=== PATIENT | female | born 1955 | race Asian ===

== ENCOUNTER 2024-08-16 00:07 | Inpatient (IN) | payer MEDICAID, OTHER ==
[~2024-08-16] VITALS: Ht 160 cm; Wt 52.3 kg
--- NOTE | 2024-08-16 00:39 | ED.PDOC ---
History of Present Illness HPI Comments 68-year-old female, history of hypertension, is brought in by ambulance for complaint of dizziness, with associated nausea, vomiting, and photosensitivity, today. Per EMS report, patient is Mandarin speaker and endorses on sudden onset of symptoms 45x minutes prior to ED arrival. She was noted to have been found in her home hunched over toilet, actively, vomiting. Vomitus was reported to have been dark brown in appearance. Initial blood glucose of 137. All remaining vitals were stable and within normal limits. She was compliant with her medications. She has no further associated reported symptoms. At this time of initial assessment, patient is moaning and not answering questions. Family/caretakers not present. Per patient's daughter at bedside patient had a sudden onset of nausea, vomiting, diarrhea and severe headache just prior to calling EMS. Patient had been well throughout the day. No recent illness. No recent travel. Patient had only reported headache earlier in the day. No sick contacts at home. Patient has a history of hypertension. Had negative carotid ultrasound last year. Chief Complaint: Dizziness Time Seen by MD: 00:20 Reviewed Notes: Nurses Notes, Medications, Allergies Allergies: Coded Allergies: No Known Drug Allergy (Verified Allergy, Unknown, 08/16/24) NKDA Home Meds Reported Medications Pravastatin Sodium (PRAVACHOL TABLET) 20 Mg Tb, 1 TAB PO DAILY 08/16/24 Isosorbide Mononitrate (Isosorbide Mononitrate Er) 30 Mg Tab, 1 TAB PO DAILY 08/16/24 Metoprolol Succinate (Metoprolol Succinate Er) 25 Mg Tab, 1 TAB PO DAILY 08/16/24 Information Source: Emergency Med Personnel Mode of Arrival: EMS Severity: Moderate Timing: Minutes Duration: Since onset Prehospital treatment: 12 Lead EKG, Accucheck (137), Ship'S Master, Other (18 gauge left AC) Review of Systems: Unable to obtain full ROS HEENT: Photosensitivity. Lungs: No shortness of breath, no cough. GI: Nausea and vomiting. Positive diarrhea Neuro: Positive headache, positive dizziness Vital Signs Vital Signs Date Time Temp Pulse Resp B/P (MAP) Pulse Ox O2 Delivery O2 Flow Rate FiO2 08/16/24 09:00 Room Air* 0 21 08/16/24 08:16 98.3 73 18 138/74 (95) 94 98.3 Physical Exam General: Patient is lethargic, arouses to verbal stimulus Skin: Skin in warm, dry and intact. Appropriate color for ethnicity. HEENT: The head is normocephalic and atraumatic. Conjunctivae are clear without exudates or hemorrhage. Sclera is non-icteric. EOM are intact. PERRLA No signs of nystagmus. Eyelids are normal in appearance without swelling or lesions. Oral mucosa is pink and moist Neck: The neck is supple with normal range of motion. No JVD. Cardiac: Heart rate and rhythm are normal. No murmurs, gallops, or rubs are auscultated. Respiratory: No signs of respiratory distress. Lung sounds are clear in all lobes bilaterally without rales, rhonchi, or wheezes. Abdominal: Abdomen is soft, non-tender without distention. Bowel sounds are present and normoactive in all four quadrants. Extremities: Upper and lower extremities are atraumatic in appearance without deformity or edema. Neurological: Patient is lethargic, arouses to verbal stimulus. No upper or lower extremity drift. Patient is following commands. No facial asymmetry. Past Medical History PAST MEDICAL HISTORY: HTN Surgical History: Denies all surgeries AWAKE OVERNIGHT MONITOR History: Denies all AWAKE OVERNIGHT MONITOR Hx Family History Family History: Unknown Social History Smoker: Non-Smoker Alcohol: Denies ETOH Use Drugs: Denies Drug Use Lives In: Home Was a procedure done? Was a procedure done?: No EKG EKG : Pulse Rate (adult): 72 [place]: Normal Cardiac Rhythm: NSR Block: None Hypertrophy: None ST: Normal Comments No STEMI Differential Dx Considerations may include: Differential diagnoses considered include but are not limited to cardiac structural disease, arrhythmia, acute coronary syndrome, orthostasis, pulmonary embolism, dissection, seizure, basilar stroke, other. X-Ray, Labs, Meds, VS Vital Signs Date Time Temp Pulse Resp B/P (MAP) Pulse Ox O2 Delivery O2 Flow Rate FiO2 08/16/24 09:00 Room Air* 0 21 08/16/24 08:16 98.3 73 18 138/74 (95) 94 98.3 08/16/24 06:00 80 14 125/72 (89) 96 08/16/24 05:00 74 16 137/75 (95) 94 08/16/24 04:00 73 16 138/75 (96) 93 08/16/24 04:00 75 08/16/24 03:03 74 15 148/74 (98) 96 08/16/24 02:00 70 14 156/69 (98) 96 08/16/24 00:55 64 18 100 Room Air* 0 21 08/16/24 00:55 97.9 64 18 155/69 (97) 100 97.9 08/16/24 00:39 72 08/16/24 00:17 97.6 84 20 136/74 (94) 97 97.6 08/16/24 00:13 72 Lab Test 08/16/24 03:35 08/16/24 02:10 08/16/24 01:36 08/16/24 00:36 Range/Units Urine Color Colorless Yellow Urine Clarity Turbid H Clear Urine pH 8.5 5.0-9.0 Urine Specific [place] 1.015 1.001-1.035 Urine Protein Negative Negative Urine Ketones Trace Negative Urine Blood Negative Negative /uL Urine Nitrite Negative Negative Urine Bilirubin Negative Negative Urine Urobilinogen Normal Negative mg/dL Urine Leukocyte Esterase Negative Negative /uL Urine RBC None seen 0 - 4 /hpf Urine Microscopic WBC < 1 0-5 /HPF Urine Squamous Epithelial Cells None seen <5 /hpf Urine Amorphous Crystals Many None Seen /hpf Urine Bacteria None seen None Seen /hpf Urine Glucose Normal Normal mg/dL Influenza Type A Antigen Negative Negative Influenza Type B Antigen Negative Negative SARS-CoV-2 Antigen (Rapid) Negative NEGATIVE Troponin I High Sensitivity < 3 L < 3 L </=34 ng/L White Blood Count 6.6 4.4-10.8 10^3/uL Red Blood Count 4.70 4.0-5.20 10^6/uL Hemoglobin 13.6 12.2-16.2 g/dL Hematocrit 40.6 36.0-46.0 % Mean Corpuscular Volume 86.3 80.0-100.0 fL Mean Corpuscular Hemoglobin 29.0 28.0-32.0 pg Mean Corpuscular Hemoglobin Concent 33.6 32.0-36.0 g/dL Red Cell Distribution Width 12.6 11.8-14.3 % Platelet Count 131 L 140-450 10^3/uL Mean Platelet Volume 8.3 6.9-10.8 fL Neutrophils (%) (Auto) 80.0 37.0-80.0 % Lymphocytes (%) (Auto) 14.7 10.0-50.0 % Monocytes (%) (Auto) 3.9 0.0-12.0 % Eosinophils (%) (Auto) 1.1 0.0-7.0 % Basophils (%) (Auto) 0.3 0.0-2.0 % Neutrophils # (Auto) 5.3 1.6-8.6 10 ^3/uL Lymphocytes # (Auto) 1.0 0.4-5.4 10 ^3/uL Monocytes # (Auto) 0.3 0-1.3 10 ^3/uL Eosinophils # (Auto) 0.1 0-0.8 10 ^3/uL Basophils # (Auto) 0 0-0.2 10 ^3/uL Nucleated Red Blood Cells 0.0 % Prothrombin Time 10.4 9.3-11.8 sec Prothrombin Time INR 0.98 0.9-1.15 Sodium Level 141 136-145 mmol/L Potassium Level 3.2 L 3.5-5.1 mmol/L Chloride Level 106 98-107 mmol/L Carbon Dioxide Level 25 20-31 mmol/L Anion Gap 10 5-15 Blood Urea Nitrogen 21 9-23 mg/dL Creatinine 0.86 0.550-1.02 mg/dL Glomerular Filtration Rate Calc 74 >90 mL/min BUN/Creatinine Ratio 24.4 H 10.0-20.0 Serum Glucose 135 H 74-106 mg/dL Lactic Acid Level 1.9 0.4-2.0 mmol/L Calcium Level 10.0 8.7-10.4 mg/dL Magnesium Level 2.2 1.6-2.6 mg/dL Total Bilirubin 0.5 0.2-1.0 mg/dL Aspartate Amino Transferase (AST) 25 13-40 U/L Alanine Aminotransferase (ALT) 21 7-40 U/L Alkaline Phosphatase 61 46-116 U/L Total Protein 7.6 5.7-8.2 g/dL Albumin 4.7 3.2-4.8 g/dL Plasma/Serum Blood Alcohol < 3.0 <10 mg/dL Time of 1ST Reevaluation: 00:50 Reevaluation 1ST: Unchanged Patient Education/Counseling: Need For Follow Up Family Education/Counseling: No Family Present Departure 1 Departure Time of Disposition: 05:53 Impression: Primary Impression: Headache Additional Impression: Nausea & vomiting Disposition: 09 ADMITTED INPATIENT Condition: Stable Comments 68-year-old female who presented to the emergency department with sudden onset of severe dizziness, headache, nausea, vomiting and diarrhea. No focal neuro deficit on exam. Patient continues to be generally lethargic however nausea and headache have improved. CT head negative for acute stroke or intracranial hemorrhage. CT angiogram head and neck pending. Patient admitted to hospitalist service for further treatment, evaluation and monitoring. Extensive evaluation was performed in attempt to identify or rule out: (See differential diagnosis section) The following tests were ordered, and results were reviewed by me and discussed with patient: (See diagnostic results section) The following test were independently interpreted by me: EKG I reviewed and agreed with the following test results read by other providers: CT head without contrast I reviewed the following notes from the pt's past medical encounters: N/A Additional information was gathered from interviewing the following independent historians: EMS, patient's daughter at bedside Decision regarding hospitalization or escalation of hospital level of care: Risk and benefits of admission for further treatment of patient's condition was considered. Due to patient's current clinical condition, high risk of decline and poor outcome if discharged and need for further inpatient management and monitoring, patient will be admitted to the hospital. Decision regarding hospitalization or escalation of hospital level of care: Risks and benefits of admission for further treatment of patient's condition was considered however due to patient's stable condition patient will be discharged to follow up closely or return to care for worsening of condition or inability to follow up. Critical Care Note Critical Care Time?: No Stability Stability form required: No Heart Score Heart Score: Heart Score Response (Comments) Value History N/A 0 EKG N/A 0 Age N/A 0 Risk Factors N/A 0 Troponin N/A 0 Total 0 I personally scribed for MIGUEL THURSTON MD ([email or web address]) on 08/16/24 at 00:39. Electronically submitted by Edwin Mora ([email or web address]). MIGUEL THURSTON MD August 16, 2024 00:39
[2024-08-16 00:54] LABS: Basophils # (auto) 0 10 ^3/uL (0-0.2); Basophils % (auto) 0.3 % (0.0-2.0); Eosinophils # (auto) 0.1 10 ^3/uL (0-0.8); Eosinophils % (auto) 1.1 % (0.0-7.0); Hematocrit 40.6 % (36.0-46.0); Hemoglobin 13.6 g/dL (12.2-16.2); Lymphocytes % (auto) 14.7 % (10.0-50.0); Mean Corpuscular Hgb Conc. 33.6 g/dL (32.0-36.0); Mean Corpuscular Volume 86.3 fL (80.0-100.0); Monocytes # (auto) 0.3 10 ^3/uL (0-1.3); Monocytes % (auto) 3.9 % (0.0-12.0); Neutrophils # (auto) 5.3 10 ^3/uL (1.6-8.6); Platelet Count (auto) 131 10^3/uL (140-450); Red Cell Distribution Width 12.6 % (11.8-14.3); White Blood Cell 6.6 10^3/uL (4.4-10.8)
[2024-08-16 00:55] VITALS: PULSE 64; RESP 18; O2SAT 100
[2024-08-16] MEDS: SODIUM CHLORIDE 0.9% 1,000 ML IV ONE (01:05)
[2024-08-16] MEDS: PROCHLORPERAZINE EDISYLATE 5 MG/ML 2ML VIAL IV ONE (01:06)
[2024-08-16 01:09] LABS: INR 0.98 (0.9-1.15); Prothrombin Time 10.4 sec (9.3-11.8)
[2024-08-16 01:19] LABS: Alanine Aminotransferase 21 U/L (7-40); Albumin 4.7 g/dL (3.2-4.8); Alkaline Phosphatase 61 U/L (46-116); Anion Gap 10 (5-15); Aspartate Aminotransferase 25 U/L (13-40); BUN/Creatinine Ratio 24.4 (10.0-20.0); Blood Urea Nitrogen 21 mg/dL (9-23); Carbon Dioxide 25 mmol/L (20-31); Chloride 106 mmol/L (98-107); Magnesium 2.2 mg/dL (1.6-2.6); Sodium 141 mmol/L (136-145); Total Protein 7.6 g/dL (5.7-8.2)
[2024-08-16 01:20] LABS: Bilirubin, Total 0.5 mg/dL (0.2-1.0)
--- NOTE | 2024-08-16 01:23 | DVH ---
CT HEAD WITHOUT CONTRAST INDICATION: Acute HARRIS, N/V, dizziness COMPARISON: None TECHNIQUE: CT of the head without intravenous contrast. RADIATION DOSE: CTDIvol: 58.35 mGy, DLP: 1033.08 mGy*cm FINDINGS: There is no evidence of intracranial hemorrhage, infarct, extra-axial collection, mass effect, midli ne shift, herniation or hydrocephalus. The ventricles, sulci and cisterns are normal. The burris-white differentiation is normal. Visualized paranasal sinuses and mastoid air cells are clear. Soft tissues and osseous structures are unremarkable. IMPRESSION: No intracranial abnormality identified.
[2024-08-16 01:24] LABS: Glucose 135 mg/dL (74-106); Potassium 3.2 mmol/L (3.5-5.1)
[2024-08-16] MEDS: IOHEXOL 350 MG/ML 100ML IJ ONE ×2 (01:25→02:06)
[2024-08-16 01:46] LABS: Blood Alcohol < 3.0 mg/dL (<10)
[2024-08-16] MEDS: KETOROLAC TROMETH 30 MG/ML 1ML VIAL IV ONE (02:00)
[2024-08-16 03:34] LABS: Rapid Influenza A Negative (Negative); Rapid Influenza B Negative (Negative)
[2024-08-16 03:35] LABS: COVID19 ANTIGEN SOFIA FIA NEGATIVE (NEGATIVE)
[2024-08-16 03:55] LABS: Urine Bacteria None Seen /hpf (None Seen)
[2024-08-16 04:05] LABS: Urine Amorphous Crystal MANY /hpf (None Seen); Urine Blood Negative /uL (Negative); Urine Clarity Turbid (Clear); Urine Color Colorless (Yellow); Urine Protein, UAD Negative (Negative); Urine Specific Gravity 1.015 (1.001-1.035); Urine Squamous Epithelial Cell None Seen /hpf (<5); Urine Urobilinogen Normal (Negative); Urine pH 8.5 (5.0-9.0)
[2024-08-16 04:06] LABS: Urine WBC < 1 /HPF (0-5)
--- NOTE | 2024-08-16 06:16 | ECG ---
[facility] Test Date: 2024-08-16 Test Time: 00:13:07 Pat Name: CONNER AGUILAR Department: ED Room: 0223T Gender: F Manager Statistical Programming: [place] : 1955 Requested By: MIGUEL THURSTON Order Number: [id number] Reading MD: Jose Wilde Measurements Intervals [place] Rate: 72 P: 22 FL: 176 QRS: 52 QRSD: 105 T: 39 QT: 438 QTc: 480 Interpretive Statements Sinus rhythm Electronically Signed On 08-19-2024 20:40:16 PDT by Jose Wilde Please click the below link to view image of tracing.
[2024-08-16] MEDS: IOHEXOL 300 MG/ML 100ML BOTTLE IJ ONE (08:20)
[2024-08-16] MEDS ORDERED: METO25TA93 PO (09:06)
[2024-08-16] MEDS ORDERED: ISOS1TAB28 PO (09:06)
[2024-08-16] MEDS ORDERED: PRAV20TA3 PO (09:06)
[2024-08-16] MEDS ORDERED: HYDROcodone-ACET 5/325MG TAB PO PRN (09:15)
[2024-08-16] MEDS ORDERED: ACETAMINOPHEN 500 MG TAB or CAP PO PRN (09:15)
[2024-08-16] MEDS ORDERED: ONDANSETRON HCL 4 MG/2 ML VIAL IV PRN (09:15)
[2024-08-16] MEDS ORDERED: MORPHINE SULFATE INJ 2 MG/ml SYRG IV PRN (09:15)
[2024-08-16] MEDS ORDERED: NITROGLYCERIN 0.4 MG SL TAB SL PRN (09:15)
--- NOTE | 2024-08-16 09:16 | DVHHP2 ---
History of Present Illness Reason for Visit: Dizziness, nausea and vomiting History of Present Illness The patient was a 68-year-old female brought to the emergency room by EMS after having multiple bouts of nausea and vomiting, complaints of dizziness, as well as having severe generalized weakness. History was obtained from the ER physician's records as well as speaking with the patient was daughter who is able to speaking Mongolian and was present during her episode prior to coming in the hospital. Apparently, the patient was of normal health and only has a significant history of hypertension and dyslipidemia. It was reported that the patient first complain of severe dizziness with inability to ambulate without holding on to furniture, then proceeded to having multiple bouts of nausea and vomiting. Patient and daughter deny having any new oral intake with possible spoiled or foods. Prior to her episode she was of probable health. Thus far, CT scan of the head is negative for acute CVA was troponins negative and EKG being unremarkable for any acute cardiac event. At the time of assessment, the patient denies any symptoms, as well as having any problems with abdominal discomfort with palpation. She was noted to be hypokalemic with a potassium of 3.2. CT angiogram of the neck is currently pending. Cardiovascular: HTN, hyperipidemia Past Surgical History: None Smoke: No ALCOHOL: none Drugs: None Lives: with Family Review of Systems Constitutional: Yes: Weakness, Other (Dizziness) Eyes: No: Pain, Vision change, Conjunctivae inflammation, Eyelid inflammation, Other, Redness ENT: No: Ear pain, Ear discharge, Nose pain, Nose discharge, Nose congestion, Mouth pain, Mouth swelling, Throat pain, Throat swelling, Other Respiratory: No: Cough, Dry, Shortness of breath, SOB with excertion, Wheezing, Hemoptysis, Pleuritic Pain, Sputum, Wheezing, Other Gastrointestinal: Vomiting, Abdominal Pain Genitourinary: No Dysuria, No Frequency, No Incontinence, No Hematuria, No Retention, No Other Musculoskeletal: No: other, neck pain, shoulder pain, arm pain, back pain, hand pain, leg pain, foot pain Skin: No: Rash, Lesions, Jaundice, Bruising, Other Neurological: No: Weakness, Numbness, Incoordination, Change in speech, Confusion, Seizures, Other Allergies: Coded Allergies: No Known Drug Allergy (Verified Allergy, Unknown, 08/16/24) NKDA Medications Current Medications Medications Dose Ordered Sig/Gordon Route Start Time Stop Time Status Last Admin Dose Admin Nitroglycerin 0.4 mg Q5MINP PRN SL 08/16/24 09:15 UNV Morphine Sulfate 2 mg Q30M PRN IV 08/16/24 09:15 UNV Acetaminophen/ Hydrocodone Bitart 1 tab Q6HPRN PRN PO 08/16/24 09:15 UNV Acetaminophen 500 mg Q8HP PRN PO 08/16/24 09:15 UNV Ondansetron HCl 4 mg Q6HP PRN IV 08/16/24 09:15 UNV Potassium Chloride/Sodium Chloride 1,000 ml @ 75 mls/hr [id number] IV 08/16/24 09:15 UNV Exam Vital Signs Vital Signs Date Time Temp Pulse Resp B/P (MAP) Pulse Ox O2 Delivery O2 Flow Rate FiO2 08/16/24 08:16 98.3 73 18 138/74 (95) 94 98.3 08/16/24 00:55 Room Air* 0 21 General Appearance: Alert, Oriented X3, Cooperative, mild distress HEENT: Atraumatic Respiratory: Clear to auscultation, Normal air movement Cardiovascular: Normal S1, Normal S2 Abdominal: Normal bowel sounds, Soft, No tenderness, No hepatospenomegaly Extremities: No clubbing, No cyanosis, No edema, Normal pulses, No tenderness/swelling Neuro: Normal gait, Normal speech Psych/Mental Status: Mental status NL, Mood NL Labs/Xrays Labs Test 08/16/24 03:35 08/16/24 02:10 08/16/24 01:36 08/16/24 00:36 Range/Units Urine Color Colorless Yellow Urine Clarity Turbid H Clear Urine pH 8.5 5.0-9.0 Urine Specific [place] 1.015 1.001-1.035 Urine Protein Negative Negative Urine Ketones Trace Negative Urine Blood Negative Negative /uL Urine Nitrite Negative Negative Urine Bilirubin Negative Negative Urine Urobilinogen Normal Negative mg/dL Urine Leukocyte Esterase Negative Negative /uL Urine RBC None seen 0 - 4 /hpf Urine Microscopic WBC < 1 0-5 /HPF Urine Squamous Epithelial Cells None seen <5 /hpf Urine Amorphous Crystals Many None Seen /hpf Urine Bacteria None seen None Seen /hpf Urine Glucose Normal Normal mg/dL Influenza Type A Antigen Negative Negative Influenza Type B Antigen Negative Negative SARS-CoV-2 Antigen (Rapid) Negative NEGATIVE Troponin I High Sensitivity < 3 L </=34 ng/L White Blood Count 6.6 4.4-10.8 10^3/uL Red Blood Count 4.70 4.0-5.20 10^6/uL Hemoglobin 13.6 12.2-16.2 g/dL Hematocrit 40.6 36.0-46.0 % Mean Corpuscular Volume 86.3 80.0-100.0 fL Mean Corpuscular Hemoglobin 29.0 28.0-32.0 pg Mean Corpuscular Hemoglobin Concent 33.6 32.0-36.0 g/dL Red Cell Distribution Width 12.6 11.8-14.3 % Platelet Count 131 L 140-450 10^3/uL Mean Platelet Volume 8.3 6.9-10.8 fL Neutrophils (%) (Auto) 80.0 37.0-80.0 % Lymphocytes (%) (Auto) 14.7 10.0-50.0 % Monocytes (%) (Auto) 3.9 0.0-12.0 % Eosinophils (%) (Auto) 1.1 0.0-7.0 % Basophils (%) (Auto) 0.3 0.0-2.0 % Neutrophils # (Auto) 5.3 1.6-8.6 10 ^3/uL Lymphocytes # (Auto) 1.0 0.4-5.4 10 ^3/uL Monocytes # (Auto) 0.3 0-1.3 10 ^3/uL Eosinophils # (Auto) 0.1 0-0.8 10 ^3/uL Basophils # (Auto) 0 0-0.2 10 ^3/uL Nucleated Red Blood Cells 0.0 % Prothrombin Time 10.4 9.3-11.8 sec Prothrombin Time INR 0.98 0.9-1.15 Sodium Level 141 136-145 mmol/L Potassium Level 3.2 L 3.5-5.1 mmol/L Chloride Level 106 98-107 mmol/L Carbon Dioxide Level 25 20-31 mmol/L Anion Gap 10 5-15 Blood Urea Nitrogen 21 9-23 mg/dL Creatinine 0.86 0.550-1.02 mg/dL Glomerular Filtration Rate Calc 74 >90 mL/min BUN/Creatinine Ratio 24.4 H 10.0-20.0 Serum Glucose 135 H 74-106 mg/dL Lactic Acid Level 1.9 0.4-2.0 mmol/L Calcium Level 10.0 8.7-10.4 mg/dL Magnesium Level 2.2 1.6-2.6 mg/dL Total Bilirubin 0.5 0.2-1.0 mg/dL Aspartate Amino Transferase (AST) 25 13-40 U/L Alanine Aminotransferase (ALT) 21 7-40 U/L Alkaline Phosphatase 61 46-116 U/L Total Protein 7.6 5.7-8.2 g/dL Albumin 4.7 3.2-4.8 g/dL Plasma/Serum Blood Alcohol < 3.0 <10 mg/dL Assessment/Plan Assessment/Plan Impression: -rule out CVA -intractable nausea and vomiting -hypokalemia -accelerated hypertension -history of dyslipidemia Plan: -admit to telemetry unit -CT angiogram of the neck currently pending -antiemetics -IV hydration -potassium replacement -antihypertensives -repeat labs in a.m. -plan of care discussed with both patient and daughter. All questions answered. Total time spent with patient discussing and formulating plan of care: 35 minutes. Total time spent with patient and family regarding advance care plannin minutes. This medical document was created using an electronic medical record system with [employer] dictation system. Although this document has been carefully reviewed, there may still be some phonetic and typographical errors. These areas are purely typographical due to imperfections of the software programs, and do not reflect any compromise in the patient's medical care. Plan discussed with: Patient, Daughter, Other (RN) My Orders Orders - MASSIMO DAVEY NP Procedure Category Date Status Time Kub Abdomen Single XY 08/16/24 Logged View 09:03 Admit ADMIT 08/16/24 Transmitted 09:03 Nitroglycerin PHA 08/16/24 Logged Sublingual (Ntrostat 09:15 Morphine Sulfate PHA 08/16/24 Logged Injection 09:15 Stat Ekg For Chest GLEN 08/16/24 In Process Pain 09:03 Notify Of Changes GLEN 08/16/24 In Process From Base 09:03 Interactive Project Manager For GLEN 08/16/24 In Process 24 Hours 09:03 Emergency Dysrhythmia GLEN 08/16/24 In Process Protocol 09:03 Rhythm Strips Once GLEN 08/16/24 In Process Every Shift 09:03 Oxygen By Nasal RT 08/16/24 Transmitted Cannula 09:03 Clear Liq Diet DIET 08/16/24 Transmitted Breakfast Hydrocodone-Acet PHA 08/16/24 Logged 5/325mg Tab ([place] 09:15 Acetaminophen Tab Or PHA 08/16/24 Logged Cap (Tylenol Tablet 09:15 Ondansetron Hcl PHA 08/16/24 Logged (Zofran) 09:15 Sod Chl 0.9%/ Kcl PHA 08/16/24 Logged 40meq 09:15 Basic Metabolic Panel LAB 08/17/24 Verified 04:00 Magnesium LAB 08/17/24 Verified 04:00 Date of Service: August 16, 2024 Billing Provider: MASSIMO DAVEY NP Common Visit Codes: [id number] INP/OBS CARE (HIGH) Secondary Visit Codes: [id number] CARE PLAN 30 MINUTES MASSIMO DAVEY NP August 16, 2024 09:16
--- NOTE | 2024-08-16 09:27 | DVH ---
Procedure: CT ANGIO HEAD/Neck HISTORY: Severe HARRIS, sudden onset dizzines, N/V Comparison Study: None Exam Date:08/16/2024 08:17 AM TECHNIQUE: CTA head without and with intravenous contrast. CTA neck with intravenous contrast. 3D preeti Matchmaker Videos postprocessing was performed and images were used for interpretation and reporting. 100 cc of Omni paque 300 contrast was injected intravenously. All CT scans at this medical facility are performed using dose modulation techniques as appropriate t o a performed exam including the following: Automated exposure control was utilized; adjustment of th e MA and/or KV according to patient size; and use of iterative reconstruction technique. Radiation Dose : CT Dose: CTDI volume is 22 mGy. Dose-length product is 1349 mGy*cm FINDINGS: CTA head: There is moderate circumferential calcified atherosclerotic plaque in the right supraclinoid ICA with approximately 55% stenosis. There are mild nonocclusive atheromatous plaques in the bilateral cavern ous iCAs. The anterior and middle cerebral arteries demonstrate normal caliber without hemodynamically signific ant stenosis or occlusion. The vertebral, basilar, and posterior cerebral arteries also demonstrate normal caliber without hemod ynamically significant stenosis or occlusion. There is no evidence of intracranial arterial aneurysm or arteriovenous malformation. There is no evidence of acute hemorrhage, mass, mass effect or midline shift. There is no hydrocepha jaymie or extra-axial fluid collection. Padron-white matter differentiation is maintained. CTA neck: The visualized thoracic aortic arch and proximal great vessels are unremarkable. The bilateral common, internal and external carotid arteries are patent without hemodynamically signi ficant stenosis. The cervical segments of the right and left vertebral arteries are patent without flow-limiting steno sis or obvious dissection.. The neck soft tissues appear within normal limits. Lung apices are clear. IMPRESSION: 1. Moderate circumferential calcified atherosclerotic plaque in the right supraclinoid ICA with appro ximately 55% stenosis. 2. Otherwise, there is no hemodynamically significant stenosis, proximal occlusion or aneurysm in the intracranial arteries. 3. No hemodynamically significant stenosis in the cervical segments of the carotid and vertebral ridge marie. HS:Y
--- NOTE | 2024-08-16 09:57 | DVH ---
Date: 08/16/2024 09:04 AM Examination: XY KUB ABDOMEN SINGLE VIEW History: N/V, abdominal pain Comparison: None TECHNIQUE: Frontal views of the abdomen was obtained. FINDINGS: Bowel gas pattern is unremarkable. Contrast opacifies the bilateral renal collecting system and bladd er. The lung bases are unremarkable. No acute osseous abnormality identified. IMPRESSION: Nonobstructive bowel gas pattern.
[2024-08-16] MEDS: SOD CHL 0.9%/ KCL 40MEQ 1,000 ML IV SCH (11:45)
[2024-08-16] MEDS: metroNIDAZOLE 500MG/100ML 100 ML IV SCH (15:30)
[2024-08-16 16:39] VITALS: PULSE 73; RESP 16; O2SAT 96
[2024-08-16 18:36] VITALS: PULSE 72
[2024-08-16 20:00] VITALS: PULSE 53
[2024-08-16 21:00] VITALS: BP 147/83; PULSE 88; RESP 18; TEMP 98.5; O2SAT 96
[2024-08-17] VITALS (8 sets, daily range): BP systolic 123–153; BP diastolic 69–87; PULSE 71–87; RESP 16–18; TEMP 97.5–98.5; O2SAT 93–96
[2024-08-17 07:04] LABS: Sodium 145 mmol/L (136-145)
[2024-08-17 07:05] LABS: Anion Gap 8 (5-15); Carbon Dioxide 25 mmol/L (20-31)
[2024-08-17 07:06] LABS: Calcium 8.8 mg/dL (8.7-10.4)
[2024-08-17 07:10] LABS: Glucose 90 mg/dL (74-106)
[2024-08-17 07:11] LABS: BUN/Creatinine Ratio 12.7 (10.0-20.0); Magnesium 2.1 mg/dL (1.6-2.6)
[2024-08-17 07:15] LABS: Blood Urea Nitrogen 9 mg/dL (9-23); Chloride 112 mmol/L (98-107)
--- NOTE | 2024-08-17 09:13 | DVHPN2 ---
Subjective Patient continues to report having some dizziness. Denies having any nausea or vomiting or abdominal pain. Reviewed: Care Plan, H&P, Labs, Medications Changes from previous H/P or p: Changes Eyes: No Pain, No Vision change, No Conjunctivae inflammation, No Eyelid inflammation, No Other, No Redness ENT: No Ear pain, No Ear discharge, No Nose pain, No Nose discharge, No Nose congestion, No Mouth pain, No Mouth swelling, No Throat pain, No Throat swelling, No Other Respiratory: No Cough, No Dry, No Shortness of breath, No SOB with excertion, No Wheezing, No Hemoptysis, No Pleuritic Pain, No Sputum, No Other Gastrointestinal: Vomiting, Abdominal Pain Genitourinary: No Dysuria, No Frequency, No Incontinence, No Hematuria, No Retention, No Other Musculoskeletal: No other, No neck pain, No shoulder pain, No arm pain, No back pain, No hand pain, No leg pain, No foot pain Skin: No Rash, No Lesions, No Jaundice, No Bruising, No Other Objective Vitals Vital Signs Date Time Temp Pulse Resp B/P (MAP) Pulse Ox O2 Delivery O2 Flow Rate FiO2 08/17/24 05:00 98.2 80 16 148/78 (101) 95 98.2 08/16/24 20:00 Room Air* 0 21 Intake/Output Intake and Output 08/17/24 07:00 Intake Total 1500 ml Output Total 300 ml Balance 1200 ml Intake Oral 850 ml IV Total 650 ml Output Other 300 ml # Voids 4 General Appearance: Alert, Oriented X3, Cooperative, No acute distress HEENT: Atraumatic, PERRLA Lungs: Clear to auscultation, Normal air movement Cardiovascular: Normal S1, Normal S2 Abdomen: Normal bowel sounds, Soft, No tenderness Musculoskeletal: Normal sensory function, Normal motor function Neuro: Normal speech Skin: Dry, Intact Psych/Mental Status: Mental status NL, Mood NL Medications Current Medications Medications Dose Ordered Sig/Gordon Route Start Time Stop Time Status Last Admin Dose Admin Nitroglycerin 0.4 mg Q5MINP PRN SL 08/16/24 09:15 Morphine Sulfate 2 mg Q30M PRN IV 08/16/24 09:15 Acetaminophen/ Hydrocodone Bitart 1 tab Q6HPRN PRN PO 08/16/24 09:15 Acetaminophen 500 mg Q8HP PRN PO 08/16/24 09:15 Ondansetron HCl 4 mg Q6HP PRN IV 08/16/24 09:15 Potassium Chloride/Sodium Chloride 1,000 ml @ 75 mls/hr [id number] IV 08/16/24 09:15 08/16/24 11:45 75 MLS/HR Metronidazole 100 ml @ 100 mls/hr Q8HR IV 08/16/24 14:00 08/17/24 06:40 100 MLS/HR Patient Own Medication 1 tab DAILY PO 08/17/24 10:00 UNV Laboratory Results Laboratory Tests 08/16/24 00:36 08/17/24 06:28 Chemistry Test 08/17/24 06:28 Calcium Level 8.8 mg/dL (8.7-10.4) Magnesium Level 2.1 mg/dL (1.6-2.6) Urinalysis Test 08/16/24 03:35 Urine Color Colorless (Yellow) Urine Clarity Turbid (Clear) H Urine pH 8.5 (5.0-9.0) Urine Specific [place] 1.015 (1.001-1.035) Urine Protein Negative (Negative) Urine Ketones Trace (Negative) Urine Blood Negative /uL (Negative) Urine Nitrite Negative (Negative) Urine Bilirubin Negative (Negative) Urine Urobilinogen Normal mg/dL (Negative) Urine Leukocyte Esterase Negative /uL (Negative) Urine RBC None seen /hpf (0 - 4) Urine Microscopic WBC < 1 /HPF (0-5) Urine Squamous Epithelial Cells None seen /hpf (<5) Urine Amorphous Crystals Many /hpf (None Seen) Urine Bacteria None seen /hpf (None Seen) Urine Glucose Normal mg/dL (Normal) Labs and/or images reviewed: Labs reviewed by me, Image(s) reviewed by me Assessment/Plan Assessment/Plan Impression: -rule out CVA -intractable nausea and vomiting -hypokalemia -accelerated hypertension -history of dyslipidemia Plan: -events: No events overnight. Patient tolerating clear liquid diet. -advanced to cardiac diet -stop IV fluids -continue IV Flagyl -restart Toprol-XL -CT angiogram of the neck negative for any occlusion. CT scan of the head negative for stroke. -a.m. Labs unremarkable. -physical therapy -reassess for discharge planning in a.m. -plan of care discussed with both patient and daughter. All questions answered. Total time spent with patient discussing and formulating plan of care: 35 minutes. This medical document was created using an electronic medical record system with [employer] dictation system. Although this document has been carefully reviewed, there may still be some phonetic and typographical errors. These areas are purely typographical due to imperfections of the software programs, and do not reflect any compromise in the patient's medical care. Plan discussed with: Patient, Other (RN) My Orders Orders - MASSIMO DAVEY NP Procedure Category Date Status Time Metronidazole PHA 08/16/24 In Process 500mg/100ml (Flagyl 14:00 (Nf) Metoprolol PHA 08/17/24 Logged Succinate (Metoprolol 10:00 Cardiac DIET 08/17/24 Transmitted Diet-2gna,Lofat,Lochol Breakfast Pt Request For Service PT 08/17/24 Logged 09:07 Date of Service: August 17, 2024 Billing Provider: MASSIMO DAVEY NP Common Visit Codes: [id number] INP/OBS CARE(HIGH) MASSIMO DAVEY NP August 17, 2024 09:13
[2024-08-17] MEDS: METOPROLOL SUCCINATE XL 50 MG TAB PO SCH (10:21)
[2024-08-18] VITALS: BP 119/74; PULSE 71; RESP 17; TEMP 97.5; O2SAT 94
[2024-08-18 01:00] VITALS: BP 150/87; PULSE 67; RESP 18; TEMP 98.1; O2SAT 94
[2024-08-18 05:00] VITALS: BP 146/80; PULSE 66; RESP 19; TEMP 97.9; O2SAT 96
[2024-08-18 08:00] VITALS: PULSE 69; PULSE 70; RESP 18; O2SAT 92
[2024-08-18 09:00] VITALS: BP 152/85; PULSE 70; RESP 17; TEMP 97.8; O2SAT 90
--- NOTE | 2024-08-18 10:52 | DVHDS2 ---
Discharge Summary Date of Admission August 16, 2024 at 09:03 Date of Discharge: August 18, 2024 Admitting Diagnosis Rule out CVA Labs/Diagnostic Data: Laboratory Results Test 08/17/24 06:28 08/16/24 03:35 08/16/24 02:10 08/16/24 01:36 Sodium Level 145 mmol/L (136-145) Potassium Level 4.0 mmol/L (3.5-5.1) Chloride Level 112 mmol/L (98-107) Carbon Dioxide Level 25 mmol/L (20-31) Anion Gap 8 (5-15) Blood Urea Nitrogen 9 mg/dL (9-23) Creatinine 0.71 mg/dL (0.550-1.02) Glomerular Filtration Rate Calc 93 mL/min (>90) BUN/Creatinine Ratio 12.7 (10.0-20.0) Serum Glucose 90 mg/dL (74-106) Calcium Level 8.8 mg/dL (8.7-10.4) Magnesium Level 2.1 mg/dL (1.6-2.6) Urine Color Colorless (Yellow) Urine Clarity Turbid (Clear) Urine pH 8.5 (5.0-9.0) Urine Specific [place] 1.015 (1.001-1.035) Urine Protein Negative (Negative) Urine Ketones Trace (Negative) Urine Blood Negative /uL (Negative) Urine Nitrite Negative (Negative) Urine Bilirubin Negative (Negative) Urine Urobilinogen Normal mg/dL (Negative) Urine Leukocyte Esterase Negative /uL (Negative) Urine RBC None seen /hpf (0 - 4) Urine Microscopic WBC < 1 /HPF (0-5) Urine Squamous Epithelial Cells None seen /hpf (<5) Urine Amorphous Crystals Many /hpf (None Seen) Urine Bacteria None seen /hpf (None Seen) Urine Glucose Normal mg/dL (Normal) Influenza Type A Antigen Negative (Negative) Influenza Type B Antigen Negative (Negative) SARS-CoV-2 Antigen (Rapid) Negative (NEGATIVE) Troponin I High Sensitivity < 3 ng/L (</=34) Test 08/16/24 00:36 White Blood Count 6.6 10^3/uL (4.4-10.8) Red Blood Count 4.70 10^6/uL (4.0-5.20) Hemoglobin 13.6 g/dL (12.2-16.2) Hematocrit 40.6 % (36.0-46.0) Mean Corpuscular Volume 86.3 fL (80.0-100.0) Mean Corpuscular Hemoglobin 29.0 pg (28.0-32.0) Mean Corpuscular Hemoglobin Concent 33.6 g/dL (32.0-36.0) Red Cell Distribution Width 12.6 % (11.8-14.3) Platelet Count 131 10^3/uL (140-450) Mean Platelet Volume 8.3 fL (6.9-10.8) Neutrophils (%) (Auto) 80.0 % (37.0-80.0) Lymphocytes (%) (Auto) 14.7 % (10.0-50.0) Monocytes (%) (Auto) 3.9 % (0.0-12.0) Eosinophils (%) (Auto) 1.1 % (0.0-7.0) Basophils (%) (Auto) 0.3 % (0.0-2.0) Neutrophils # (Auto) 5.3 10 ^3/uL (1.6-8.6) Lymphocytes # (Auto) 1.0 10 ^3/uL (0.4-5.4) Monocytes # (Auto) 0.3 10 ^3/uL (0-1.3) Eosinophils # (Auto) 0.1 10 ^3/uL (0-0.8) Basophils # (Auto) 0 10 ^3/uL (0-0.2) Nucleated Red Blood Cells 0.0 % Prothrombin Time 10.4 sec (9.3-11.8) Prothrombin Time INR 0.98 (0.9-1.15) Lactic Acid Level 1.9 mmol/L (0.4-2.0) Total Bilirubin 0.5 mg/dL (0.2-1.0) Aspartate Amino Transferase (AST) 25 U/L (13-40) Alanine Aminotransferase (ALT) 21 U/L (7-40) Alkaline Phosphatase 61 U/L (46-116) Total Protein 7.6 g/dL (5.7-8.2) Albumin 4.7 g/dL (3.2-4.8) Plasma/Serum Blood Alcohol < 3.0 mg/dL (<10) Other Laboratory Tests 08/17/24 06:28 08/16/24 00:36 Brief Hx & Hospital Course: History of Present Illness The patient was a 68-year-old female brought to the emergency room by EMS after having multiple bouts of nausea and vomiting, complaints of dizziness, as well as having severe generalized weakness. History was obtained from the ER physician's records as well as speaking with the patient was daughter who is able to speaking Bengali and was present during her episode prior to coming in the hospital. Apparently, the patient was of normal health and only has a significant history of hypertension and dyslipidemia. It was reported that the patient first complain of severe dizziness with inability to ambulate without holding on to furniture, then proceeded to having multiple bouts of nausea and vomiting. Patient and daughter deny having any new oral intake with possible spoiled or foods. Prior to her episode she was of probable health. Thus far, CT scan of the head is negative for acute CVA was troponins negative and EKG being unremarkable for any acute cardiac event. At the time of assessment, the patient denies any symptoms, as well as having any problems with abdominal discomfort with palpation. She was noted to be hypokalemic with a potassium of 3.2. CT angiogram of the neck is currently pending. Course of hospitalization: Patient has CT scan of the head, neck with contrast. Patient non no vascular occlusion or signs of CVA. Patient had KUB which was negative for any obstructive changes. Patient was given bowel rest, then placed on clear liquid diet, IV hydration, as well as antibiotic therapy with Flagyl. Patient's white blood cell count improved. Patient was able to tolerate clear liquid diet, advanced to regular diet without any signs of nausea vomiting, abdominal pain. Patient has been ambulating without any further dizziness. At this time patient will be discharged and continued on her previous home medications for hypertension as instructed to follow up with her PCP in 1-2 weeks. If she was able to obtain an appointment, she will follow up with the discharge Clinic in one week. Physical examination General: Alert and Oriented x3. No acute distress. Well-nourished. Eyes: EOMI. Anicteric. HENT: Moist mucous membranes. Lungs: Clear to auscultation bilaterally. No accessory muscle use. Cardiovascular: Regular rate and rhythm. No murmur. No JVD. Abdomen: Soft, non-tender and non-distended. No palpable masses. Extremities: No edema. Non-tender. Skin: No rashes or lesions. Warm. Neurologic: No focal neurological deficits. CN II-XII grossly intact, but not individually tested. Psychiatric: Cooperative. Appropriate mood and affect. Total time spent with patient discussing and formulating plan of care: 35 minutes. This medical document was created using an electronic medical record system with [employer] system. Although this document has been carefully reviewed, there may still be some phonetic and typographical errors. These areas are purely typographical due to imperfections of the software programs, and do not reflect any compromise in the patient's medical care. Condition at Discharge: Fair Final Diagnosis/Problems List Gastroenteritis Secondary diagnosis: -ruled out CVA -intractable nausea and vomiting -hypokalemia -accelerated hypertension -history of dyslipidemia Discharge Disposition: Home Discharge Instruct/Medications Diet: Cardiac 2g Na,low cholest Activity: No Restrictions, As Tolerated Follow Up/Referral: Follow up with PCP in 1-2 weeks Medications: Continue all home medications 36 Discharge Statement: "Patient was advised to return to the ER or call 911 if any headaches, dizziness, shortness of breath, chest pain, abdominal pain, bleeding, fevers, or worsening of medical condition. Patient was counseled about treatment plan, medications, possible side effects, patient�verbalized understanding. All questions were answered to the best of my ability. This discharge took greater then 30 minutes in planning, reviewing documentation, counseling the patient, and discussing with other team members." ASSESSMENT ASSESSMENT Assessment Gastroenteritis Date of Service: August 18, 2024 Billing Provider: MASSIMO DAVEY NP Common Visit Codes: [id number]/OBS DISCH DAY >30min MASSIMO DAVEY NP August 18, 2024 10:52
[2024-08-18] MEDS: diphenhdrAMINE HCL 25 MG CAP PO ONE (11:00)
[2024-08-18 13:00] VITALS: BP 138/88; PULSE 62; RESP 16; TEMP 97.8; O2SAT 98
== END 2024-08-18 15:30 | disposition home or self-care (01) | DRG 248 ==
LOC: EDBD 00:07 → ER 00:07 → OVERFLOW 09:03 → TELE-CENTR 16:39
PROVIDERS: ADMIT Nurse Practitioner Acute Care; ATTEND Nurse Practitioner Acute Care
DX: A04.9 Bacterial intestinal infection, unspecified (principal); E78.5 Hyperlipidemia, unspecified; E87.6 Hypokalemia; Z20.822 Contact with and (suspected) exposure to COVID-19; I10 Essential (primary) hypertension; Z79.899 Other long term (current) drug therapy
CPT/HCPCS: 36415; 70450; 70496; 70498; 74018; 80048; 80053; 80320; 81001; 83605; 83735; 84484; 85025; 85610; 87426; 87804; 93005; 97163; G0378; J1885; J3490